=== PATIENT | female | born 1990 | race Asian ===

== ENCOUNTER 2017-04-10 11:29 | Emergency (ER) | payer OTHER ==
[~2017-04-10] VITALS: Ht 160 cm; Wt 70.0 kg
[2017-04-10 11:31] VITALS: Ht 160 cm; Wt 70.0 kg
[2017-04-10] MEDS ORDERED: LEVETIRACETAM 1000 MG (PMX) 100 ML IVPB STA (11:41)
[2017-04-10] MEDS ORDERED: SOD CHLORIDE 0.9% 1,000 ML IV STA (11:41)
[2017-04-10] MEDS ORDERED: ONDANSETRON 4 MG INJ IV STA ×2 (11:46→13:27)
[2017-04-10] MEDS ORDERED: LORAZEPAM 2 MG INJ ONE (11:55)
[2017-04-10] MEDS ORDERED: LORAZEPAM 2 MG INJ IV ONE (12:00)
[2017-04-10 12:09] LABS: BASOPHILS % 0.3 % (0.0-2.0); EOSINOPHILS # 0.1 10^3/ul (0.0-0.5); EOSINOPHILS % 0.6 % (0.0-7.0); HEMATOCRIT 41.8 % (37.0-47.0); HEMOGLOBIN 13.6 g/dl (12.0-16.0); LYMPHOCYTES # 4.1 10^3/ul (0.8-2.9); LYMPHOCYTES % 38.2 % (15.0-51.0); MEAN CORPUSCULAR HEMOGLOBIN 29.5 pg (29.0-33.0); MEAN CORPUSCULAR HGB CONC 32.5 g/dl (32.0-37.0); MEAN CORPUSCULAR VOLUME 90.7 fl (82.0-101.0); MEAN PLATELET VOLUME 11.5 fl (7.4-10.4); MONOCYTE # 0.7 10^3/ul (0.3-0.9); MONOCYTES % 6.3 % (0.0-11.0); NEUTROPHILS % 54.2 % (39.0-77.0); PLATELET COUNT 231 10^3/UL (140-415); RED BLOOD COUNT 4.61 10^6/ul (4.20-5.40); WHITE BLOOD COUNT 10.6 10^3/ul (4.8-10.8)
[2017-04-10 12:29] LABS: CALCIUM 10.1 mg/dl (8.4-10.2); CREATININE 0.67 mg/dl (0.44-1.00); POTASSIUM 3.8 mmol/L (3.5-5.1)
[2017-04-10] MEDS ORDERED: LACO100T3 PO (14:40)
[2017-04-10] MEDS ORDERED: LEVE500S8 PO (14:40)
[2017-04-10 16:46] VITALS: BP 113/65; PULSE 119; RESP 16; TEMP 98.6
--- NOTE | 2017-04-10 16:59 | ERA ---
ER Documentation Chief Complaint Date/Time DATE: 04/10/17 TIME: 16:47 Chief Complaint BIB RA FOR EVAL OF SEIZURES. PT TAKES KEPPRA HPI 26-year-old female comes in with her friend for a witnessed generalized tonic- clonic seizure lasting several minutes followed by a brief postictal period. Patient is taking Keppra for her seizures have been taking it like normally. She has traveled recently and perhaps did not get enough sleep. She has no neurological deficits currently. She does not understand why she had a seizure. She does have nausea and has vomited since the seizure and has a mild headache. Her last seizure was 2 months ago ROS All systems reviewed and are negative except as per history of present illness. Medications Home Meds Reported Medications Levetiracetam* (Keppra*) 500 Mg/5 Ml Solution, 1500 MG PO BID, BOTTLE 04/10/17 Lacosamide (Vimpat) 100 Mg Tablet, 100 MG PO BID, TAB 04/10/17 Allergies Allergies: Coded Allergies: No Known Allergy (Unverified , 04/10/17) PMhx/Soc Hx Neurological Disorder: Yes (SIEZURES, BRAIN ANNEURYSM) Hx Alcohol Use: No Hx Substance Use: No Hx Tobacco Use: No Smoking Status: Never smoker Physical Exam Vitals Vital Signs Date Time Temp Pulse Resp B/P Pulse Ox O2 Delivery O2 Flow Rate FiO2 04/10/17 16:46 98.6 119 16 113/65 100 Room Air 04/10/17 14:39 125 14 94/50 98 Room Air 04/10/17 11:31 98.5 120 18 141/70 99 Physical Exam Const: [] Moderate distress Head: Atraumatic Eyes: Normal Conjunctiva, EOMI, PERRL ENT: Normal External Ears, Nose and Mouth.No tongue injury. Neck: Full range of motion..~ No meningismus. Resp: Clear to auscultation bilaterally Cardio: Regular rate and rhythm, no murmurs Abd: Soft, non tender, non distended. Normal bowel sounds Skin: No petechiae or rashes Back: No midline or flank tenderness Ext: No cyanosis, or edema Neur: Awake and alertAnd oriented 3, cranial nerves II through XII intact, no cerebellar deficits. Psych: Normal Mood and Affect Result Diagram: 04/10/17 1145 04/10/17 1145 Results 24 hrs Laboratory Tests Test 04/10/17 11:45 White Blood Count 10.610^3/ul Red Blood Count 4.6110^6/ul Hemoglobin 13.6g/dl Hematocrit 41.8% Mean Corpuscular Volume 90.7fl Mean Corpuscular Hemoglobin 29.5pg Mean Corpuscular Hemoglobin Concent 32.5g/dl Red Cell Distribution Width 12.0% Platelet Count 31999^3/UL Mean Platelet Volume 11.5fl Neutrophils % 54.2% Lymphocytes % 38.2% Monocytes % 6.3% Eosinophils % 0.6% Basophils % 0.3% Nucleated Red Blood Cells % 0.0/100WBC Neutrophils # (Manual) 5.810^3/ul Lymphocytes # 4.110^3/ul Monocytes # 0.710^3/ul Eosinophils # 0.110^3/ul Basophils # 0.010^3/ul Nucleated Red Blood Cells # 0.010^3/ul Sodium Level 140mmol/L Potassium Level 3.8mmol/L Chloride Level 103mmol/L Carbon Dioxide Level 26mmol/L Anion Gap 15 Blood Urea Nitrogen 10mg/dl Creatinine 0.67mg/dl Glucose Level 94mg/dl Calcium Level 10.1mg/dl Current Medications Medications (Trade) Dose Ordered Sig/Donald Route PRN Reason Start Time Stop Time Status Last Admin Dose Admin Sodium Chloride 1,000 ml @ 1,000 mls/hr Q1H STAT IV 04/10/17 11:41 04/10/17 12:40 DC 04/10/17 12:08 Levetiracetam (Keppra 1,000mg/ 100ml (Pmx)) 100 ml @ 400 mls/hr ONCE STAT IVPB 04/10/17 11:41 04/10/17 11:55 DC 04/10/17 12:08 Lorazepam (Ativan) 2 mg ONCE ONCE IV 04/10/17 12:00 04/10/17 12:00 DC Ondansetron HCl (Zofran Inj) 4 mg ONCE STAT IV 04/10/17 11:46 04/10/17 11:47 DC 04/10/17 12:08 Lorazepam (Ativan) 2 mg STK-MED ONCE .ROUTE 04/10/17 11:55 04/10/17 11:56 DC Ondansetron HCl (Zofran Inj) 4 mg ONCE STAT IV 04/10/17 13:27 04/10/17 13:28 DC 04/10/17 13:42 Acetaminophen (Tylenol Tab) 650 mg ONCE ONCE PO 04/10/17 17:00 04/10/17 17:01 04/10/17 16:45 Procedures/MDM Status epilepticus. Patient did seize 2 more times in the emergency room. Both of them were witnessed by staff. First time ended after 2 minutes prior to Ativan being able to be gotten out of the Pyxis and given to the patient. Second time she sees that was witnessing a seizure myself and got out of anterior in time to abort the seizure. After this seizure she was very somnolent and fell asleep although she was able to be aroused she is very drowsy. She is given a liter of normal saline and loaded with a gram of Keppra. I spoke with ,neuologist who will see this patient on consult. She is being admitted to telemetery by panel. compensation and benefits manager interpretation: Normal sinus rhythm and sinus tachycardia without arrhythmia. Critical care time greater than 35 minutes: This includes treatment of status epilepticus including rapid Ativan administration as well as Keppra administration, repeat visits patient's bedside to reassess neurological status , careful fluid administration, review of chart, discussion with neurologist, patient, admitting doctor. This does not include billable procedures. Departure Diagnosis: Primary Impression: Status epilepticus Condition: Serious RICHELLE LAGUNA DO Apr 10, 2017 16:58
[2017-04-10] MEDS ORDERED: ACETAMINOPHEN 325 MG TAB PO ONE (17:00)
--- NOTE | 2017-04-10 17:07 | QN ---
Documentation Comment The patient was to be admitted as inpatient for further evaluation of her seizures. However, in the ER, the patient wanted to leave the hospital against medical advice. Patient was informed about the consequences of leaving the hospital AGAINST MEDICAL ADVICE including the possibility of . Nevertheless, the patient wanted to leave the hospital. She was complaining of some headache and she was given 1 dose of Tylenol 650 mg orally. SONJA CHRISTIAN NP Apr 10, 2017 17:07
== END 2017-04-10 16:49 | disposition left against medical advice (07) ==
LOC: E/R 11:29
DX: G40.901 Epilepsy, unspecified, not intractable, with status epilepticus (principal); R11.0 Nausea
CPT/HCPCS: 36415; 80048; 85025; 96374; 96375; 96376; 99291; J1953; J2060; J2405; J7030